=== PATIENT | male | born 1980 | race Caucasian/White ===

== ENCOUNTER → 2023-10-13 | Outpatient (CLI) | payer OTHER ==
[2023-10-16 14:44] LABS: CREATININE,URINE - PER 24H 2138 mg/d (1000-2500); CREATININE,URINE - PER VOLUME 182 mg/dL; DOPAMINE,URINE - PER 24H 242 ug/d (71-485); DOPAMINE,URINE - PER VOLUME 206 ug/L; DOPAMINE,URINE - RATIO TO CRT 113 ug/g CRT (0-250); EPINEPHRINE,URINE - PER 24H 4 ug/d (1-14); EPINEPHRINE,URINE - PER VOLUME 3 ug/L; EPINEPHRINE,URN - RATIO TO CRT 2 ug/g CRT (0-20); HOURS COLLECTED 24 hr; NOREPINEPHRINE,UR - PER VOLUME 34 ug/L; NOREPINEPHRINE,URINE - PER 24H 40 ug/d (14-120); NOREPINEPHRINE,URN/CRT RATIO 19 ug/g CRT (0-45); TOTAL VOLUME 1175 mL
[2023-10-17 06:45] LABS: CREATININE,URINE - PER 24H 2138 mg/d (1000-2500); CREATININE,URINE - PER VOLUME 182 mg/dL; HOURS COLLECTED 24 hr; METANEPHRINE,UR - RATIO TO CRT 41 ug/g CRT (0-300); METANEPHRINE,URINE - PER 24H 87 ug/d (55-320); METANEPHRINE,URN - PER VOLUME 74 ug/L; NORMETANEPHRINE,U - PER VOLUME 197 ug/L; NORMETANEPHRINE,URN - PER 24H 231 ug/d (114-865); NORMETANEPHRINE,URN/CRT RATIO 108 ug/g CRT (0-400); TOTAL VOLUME 1175 mL
== END | disposition home or self-care (01) ==
LOC: LAB 10-12 07:30
PROVIDERS: Internal Medicine Endocrinology, Diabetes & Metabolism
DX: I15.9 Secondary hypertension, unspecified (principal)
CPT/HCPCS: 82384; 83835